=== PATIENT | female | born 1955 | race Caucasian/White ===

== ENCOUNTER 2018-09-15 00:40 | Day surgery (SDC) | payer OTHER ==
[~2018-09-15 00:40] MED LIST: ABAT250V; ACTEMRA162 MG/0.9 SC; ARMOUR THYROID; Calcium 600-D1 EACH; GABA100 PO; HYDACE10B PO; Hydrocodone-Ap1 EA20 PO; LEVSOD125 PO; MORP15ER PO; MULVITMIND PO; NAPR500 PO; ONDA4ODT MM; OXYC15ER PO; VARE1 PO
== END 2018-09-15 10:39 | disposition home or self-care (01) ==
LOC: ATC 00:40
DX: M05.79 Rheumatoid arthritis with rheumatoid factor of multiple sites without organ or systems involvement (principal)
CPT/HCPCS: 96365; J0129

== ENCOUNTER 2019-09-15 09:56 | Day surgery (SDC) | payer OTHER ==
--- NOTE | 2019-09-15 11:38 | NUR ---
1116 RECEIVED PT INTO STEP VIA [facility]. PT GRIMACING, LYING ON RIGHT SIDE. ALL BELONINGS UNDER BED. PT REPOSTIONED ON TOWEL ROLL AND PILLOW BETWEEN KNEES WHICH DECREASED PAIN. WARM BLANKETS PROVIDED. Dressing to procedure site clean, dry, intact with no visible drainage, swelling, erythema or bruising noted. 1129 PT HAS BEEN ON RIGHT SIDE FOR 30MINUTES. VSS. Dressing to procedure site clean, dry, intact with no visible drainage, swelling, erythema or bruising noted. TOLERATED FOOD AND FLUID. REPOSTIONED PATIENT TO BACK WITH KNEES ELEVATED. PROVIDED RELAXING ENVIRONMENT.VSS.
--- NOTE | 2019-09-15 12:08 | NUR ---
PT VOICED ON TIME OF ARRIVAL THAT SHE WASN'T GOING TO STAY FOR TWO HOURS. I VERBALIZED RISKS OF LEAVING RECOVERY SOONER THAN ORDERED. PT VERBALIZED UNDERSTANDING. AT 1202 PT SAT UP AND STATED, "I AM READY TO GO HOME". "I AM NOT STAYING FOR ANOTHER HOUR. Patient up to Ambulate independently. Gait steady. Discharge instructions reviewed with patient. Patient verbalizes understanding. Copy given to patient to take home. Dressing to procedure site clean, dry, intact with no visible drainage, swelling, erythema or bruising noted. ALL BELONINGS RETURNED TO PATIENT. NOTIFIED DR LEE OF PT LEAVING THE HOSPITAL AN HOUR EARLIER THAN ORDERED.
== END 2019-09-15 22:55 | disposition home or self-care (01) ==
LOC: US 09:56
DX: K75.9 Inflammatory liver disease, unspecified (principal); K76.0 Fatty (change of) liver, not elsewhere classified; E78.5 Hyperlipidemia, unspecified; K75.4 Autoimmune hepatitis; E66.9 Obesity, unspecified; Z87.891 Personal history of nicotine dependence; K43.9 Ventral hernia without obstruction or gangrene
CPT/HCPCS: 47000; 76942; 88307; 88313

== ENCOUNTER → 2020-05-12 | Outpatient (CLI) | payer OTHER ==
[~2020-05-12] MED LIST changes: +ACTEMRA162 MG/0.1 SC; +ASCO500; +CALCIUM 600 +1 EAC6; +Calcium Acetat667 MG; +EUTHYROX200 MC1 PO; +LECITHIN; +LECITHIN PO; +METF500; +VITAMIN D3 PO; +VITAMIN D310 MC4
[2020-05-12 17:20] LABS: U Amphetamine Screen Not Detected; U Barbituate Screen Not Detected; U Benzodiazapine Screen Not Detected; U Cannabinoids Screen Not Detected; U Cocaine Screen Not Detected; U Methadone Screen Not Detected; U Methamphetamine Screen Not Detected; U Opiates Screen DETECTED; U Phencyclidine Screen Not Detected
[2020-05-12 17:21] LABS: U Buprenorphine Screen Not Detected; U Oxycodone Screen Not Detected; U Propoxyphene Screen Not Detected
== END ==
LOC: LAB SHORT 15:48 → LAB 15:48 → LAB FUT 05-10 16:45
PROVIDERS: Nurse Practitioner Family
DX: Z51.81 Encounter for therapeutic drug level monitoring (principal); Z79.891 Long term (current) use of opiate analgesic

== ENCOUNTER 2020-07-08 09:24 | Day surgery (SDC) | payer OTHER ==
[~2020-07-08] VITALS: Ht 160 cm; Wt 97.1 kg
[~2020-07-08 09:24] MED LIST changes: -ASCO500; -CALCIUM 600 +1 EAC6; -Calcium Acetat667 MG; -LECITHIN; -METF500; -VITAMIN D3 PO; -VITAMIN D310 MC4
--- NOTE | 2020-07-08 10:35 | NUR ---
07/08/20 1035 Alaina Mccain Rodriguez 0918 PT. CAME IN DRINKING WATER. PT. VERBALIZES TAKING 3 DRINKS FROM WATER BOTTLE. ADMITTING DESK ALSO OBSERVED PT. DRINKING. PT.COULDN'T TELL HOW MUCH SHE DRANK. DR. JOSE THE ANESTHESIOLOGIST WAS NOTIFIED. PT. WOULD NEED TO BE DELAY. PT.INFORMED OF THIS.
[2020-07-08] MEDS ORDERED: Calcium Acetat667 MG (10:48)
[2020-07-08] MEDS ORDERED: METF500 (10:48)
[2020-07-08] MEDS ORDERED: LECITHIN (10:49)
[2020-07-08] MEDS ORDERED: ASCO500 (10:50)
[2020-07-08] MEDS ORDERED: VITAMIN D310 MC4 (11:11)
[2020-07-08] MEDS ORDERED: VITAMIN D3 PO (11:18)
[2020-07-08] MEDS ORDERED: CALCIUM 600 +1 EAC6 (13:34)
--- NOTE | 2020-07-08 13:42 | NUR ---
07/08/20 1342 Alaina Mccain PT. COUGHING POST ENDO. PT. STOPPED COUGHING AFTER DRINKING HER COFFEE.
== END 2020-07-08 13:25 | disposition home or self-care (01) ==
LOC: ORSCSDS 09:24
PROVIDERS: Internal Medicine Gastroenterology
PROC: 0DB78ZX Excision of Stomach, Pylorus, Via Natural or Artificial Opening Endoscopic, Diagnostic (ICD-10-PCS; principal; 2020-07-08 10:30)
PROC: 0DB58ZX Excision of Esophagus, Via Natural or Artificial Opening Endoscopic, Diagnostic (ICD-10-PCS; principal; 2020-07-08 10:30)
PROC: 0D757ZZ Dilation of Esophagus, Via Natural or Artificial Opening (ICD-10-PCS; principal; 2020-07-08 10:30)
DX: R13.10 Dysphagia, unspecified (principal); K21.9 Gastro-esophageal reflux disease without esophagitis; K29.70 Gastritis, unspecified, without bleeding; E66.01 Morbid (severe) obesity due to excess calories; Z68.37 Body mass index [BMI] 37.0-37.9, adult; E03.9 Hypothyroidism, unspecified; E78.5 Hyperlipidemia, unspecified; E11.9 Type 2 diabetes mellitus without complications; Z79.84 Long term (current) use of oral hypoglycemic drugs; Z79.899 Other long term (current) drug therapy; Z87.891 Personal history of nicotine dependence; Z86.19 Personal history of other infectious and parasitic diseases
CPT/HCPCS: 82947; 88305; 88312; 88342; J0330; J0461; J2405; J2704; J3010; J7120

== ENCOUNTER → 2022-03-14 | Outpatient (CLI) | payer OTHER ==
[~2022-03-14] MED LIST changes: +ASCO500; +CALCIUM 600 +1 EAC6; +Calcium Acetat667 MG; +LECITHIN; +METF500; +VITAMIN D3 PO; +VITAMIN D310 MC4
[2022-03-14 17:27] LABS: Microalb/Creat Ratio UR, Rand 46.066 mg/g (0.000-30.000); Microalbumin, Random Urine 56.2 mg/L (0.000-20.000)
== END | disposition home or self-care (01) ==
LOC: LAB SHORT 08:51
PROVIDERS: Physician Assistant
DX: R73.03 Prediabetes (principal)
CPT/HCPCS: 82043; 82570

== ENCOUNTER 2024-04-20 15:54 | Inpatient (IN) | payer OTHER ==
[~2024-04-20] VITALS: Ht 160 cm; Wt 90.7 kg
[~2024-04-20 15:54] MED LIST changes: +CALCIUM 500-VI1 EAC6 PO; -CALCIUM 600 +1 EAC6; +HYDROCODONE-AC1 EAC7 PO; -Hydrocodone-Ap1 EA20 PO; -METF500; +METFORMIN ER G500 MG PO
[2024-04-20 16:51] LABS: BASOPHILS ABSOLUTE AUTO 0.01 K/mm3 (0.00-0.23); BASOPHILS PERCENT AUTO 0 % (0-2); EOSINOPHILS PERCENT AUTO 0 % (0-6); Hematocrit 43.9 % (33.0-51.0); Hemoglobin 14.7 g/dL (11.5-16.0); IMMATURE GRAN ABSOLUTE AUTO 0.02 K/mm3 (0.00-0.10); IMMATURE GRAN PERCENT AUTO 0 % (0-1); LYMPHOCYTES ABSOLUTE AUTO 1.04 K/mm3 (0.84-5.20); LYMPHOCYTES PERCENT AUTO 12 % (21-46); MONOCYTES ABSOLUTE AUTO 1.07 K/mm3 (0.16-1.47); MONOCYTES PERCENT AUTO 12 % (4-13); Mean Corpuscular HGB 28.4 pg (26.0-34.0); Mean Corpuscular HGB Conc 33.5 g/dL (31.5-36.5); Mean Corpuscular Volume 85 fL (80-100); NEUTROPHILS ABSOLUTE AUTO 6.59 K/mm3 (1.96-9.15); NEUTROPHILS PERCENT AUTO 76 % (41-73); Platelet Count 226 K/mm3 (150-400); RDW Coefficient Variation 13.2 % (11.7-14.2); RDW Standard Deviation 40.6 fL (35.1-46.3); Red Blood Cell Count 5.17 M/mm3 (3.80-5.20); White Blood Cell Count 8.73 K/mm3 (4.00-11.30)
[2024-04-20 17:27] LABS: Albumin, Blood 3.7 g/dL (3.4-5.0); Albumin/Globulin Ratio 0.8 (0.8-1.8); Bilirubin, Total 0.3 mg/dL (0.1-1.0); Bun/Creatinine Ratio 17.5 (12.0-20.0); Calcium, Blood 8.9 mg/dL (8.5-10.1); Creatinine, Blood 0.69 mg/dL (0.40-1.00); Globulin, Blood 4.8 g/dL (2.2-4.0); Potassium, Blood 3.5 mmol/L (3.5-5.5); Total Protein, Blood 8.5 g/dL (6.4-8.2)
[2024-04-20 17:54] LABS: Source, Urine Clean Catch
[2024-04-20 18:00] LABS: Appearance, Urine Hazy (Clear); Bilirubin, Urine Neg (Neg); Blood, Urine 2+ (Neg); Color, Urine Yellow (P-Yellow); Glucose Qualitative, Urine Neg (Neg); Ketones, Urine 2+ (Neg); Leukocyte Esterase, Urine 2+ (Neg); Nitrite, Urine Neg (Neg); Protein, Urine 4+ (Neg); Urobilinogen, Urine NORM (Normal)
[2024-04-20] MEDS ORDERED: Ipratropium/Albuterol SulF 2.5-0.5MG/3 ML Amp INH ONE (18:10)
[2024-04-20 18:16] LABS: Bacteria Many /hpf; Mucus Light (0-Heavy); Squamous Epithelial Cells Mod /hpf (Few)
[2024-04-20] MEDS ORDERED: Acetaminophen 500 MG Tab PO ONE (18:20)
[2024-04-20] MEDS ORDERED: CefTRIAXone Sodium 1,000 MG in NS 100 ML IV ONE (18:40)
[2024-04-20] MEDS ORDERED: Azithromycin 500 MG in NS 250 ML IV ONE (18:45)
[2024-04-20 18:48] LABS: Influenza B, PCR NEGATIVE (NEGATIVE); Resp Syncytial Virus, PCR NEGATIVE (NEGATIVE); SARS-Cov-2 (COVID-19) PCR, MMC NEGATIVE (NEGATIVE)
[2024-04-20 19:05] LABS: Influenza A, PCR POSITIVE (NEGATIVE)
[2024-04-20] MEDS ORDERED: Oseltamivir Phosphate 75 MG Cap PO ONE (20:40)
[2024-04-20] MEDS ORDERED: Ipratropium/Albuterol SulF 2.5-0.5MG/3 ML Amp INH SCH (22:00)
[2024-04-20] MEDS ORDERED: FLU VACC TS2024-25(6MOS UP)/PF 45 MCG/0.5 ML SYRINGE IM ONE (22:00)
[2024-04-20] MEDS ORDERED: Acetaminophen 325 MG TABLET PO PRN (22:05)
[2024-04-20] MEDS ORDERED: SPIRIVA RESPIMAT4 G3 INH (23:28)
[2024-04-20] MEDS ORDERED: BUDESONIDE-FO10.2 G2 INH (23:29)
[2024-04-20] MEDS ORDERED: CYCL10 PO (23:30)
[2024-04-20] MEDS ORDERED: ORENCIA CL125 MG/1 M SC (23:32)
[2024-04-20 23:58] VITALS: BP 98/76
[2024-04-21 04:10] VITALS: BP 136/78
[2024-04-21 05:22] LABS: BASOPHILS ABSOLUTE AUTO 0.02 K/mm3 (0.00-0.23); BASOPHILS PERCENT AUTO 0 % (0-2); EOSINOPHILS ABSOLUTE AUTO 0.01 K/mm3 (0.00-0.68); EOSINOPHILS PERCENT AUTO 0 % (0-6); Hematocrit 48.6 % (33.0-51.0); Hemoglobin 15.5 g/dL (11.5-16.0); IMMATURE GRAN ABSOLUTE AUTO 0.03 K/mm3 (0.00-0.10); IMMATURE GRAN PERCENT AUTO 0 % (0-1); LYMPHOCYTES ABSOLUTE AUTO 2.45 K/mm3 (0.84-5.20); LYMPHOCYTES PERCENT AUTO 23 % (21-46); MONOCYTES ABSOLUTE AUTO 1.53 K/mm3 (0.16-1.47); MONOCYTES PERCENT AUTO 14 % (4-13); Mean Corpuscular HGB 28.5 pg (26.0-34.0); Mean Corpuscular HGB Conc 31.9 g/dL (31.5-36.5); Mean Corpuscular Volume 89 fL (80-100); NEUTROPHILS ABSOLUTE AUTO 6.61 K/mm3 (1.96-9.15); NEUTROPHILS PERCENT AUTO 62 % (41-73); Platelet Count 189 K/mm3 (150-400); RDW Coefficient Variation 13.5 % (11.7-14.2); Red Blood Cell Count 5.44 M/mm3 (3.80-5.20); White Blood Cell Count 10.65 K/mm3 (4.00-11.30)
[2024-04-21] MEDS ORDERED: Cyclobenzaprine HCl 10 MG Tab PO PRN (05:30)
[2024-04-21] MEDS ORDERED: HYDROcodone 10-APAP 325 TAB PO PRN (05:30)
[2024-04-21 05:43] LABS: Albumin, Blood 3.4 g/dL (3.4-5.0); Albumin/Globulin Ratio 0.7 (0.8-1.8); Bilirubin, Total 0.3 mg/dL (0.1-1.0); Bun/Creatinine Ratio 19.1 (12.0-20.0); Calcium, Blood 8.8 mg/dL (8.5-10.1); Creatinine, Blood 1.1 mg/dL (0.40-1.00); Globulin, Blood 4.8 g/dL (2.2-4.0); Magnesium, Blood 2.5 mg/dL (1.6-2.4); Potassium, Blood 3.4 mmol/L (3.5-5.5); Total Protein, Blood 8.2 g/dL (6.4-8.2)
[2024-04-21] MEDS ORDERED: Levothyroxine Sodium 0.1 MG Tab PO SCH (06:00)
[2024-04-21 07:27] VITALS: BP 113/69
[2024-04-21] MEDS ORDERED: Potassium Chloride 20 MEQ/15 ML UDC PO ONE (08:40)
[2024-04-21] MEDS ORDERED: Calcium Carbonate 1,250 MG TABLET PO SCH (09:00)
[2024-04-21] MEDS ORDERED: Lactobacil 2-S.Thermo-Bifido 1 1 Cap PO SCH (09:00)
[2024-04-21] MEDS ORDERED: PredniSONE 20 MG Tab PO SCH (09:00)
[2024-04-21] MEDS ORDERED: Oseltamivir Phosphate 75 MG Cap PO SCH (09:00)
[2024-04-21] MEDS ORDERED: Enoxaparin 40 MG/0.4 ML SYR SC SCH (09:00)
[2024-04-21] MEDS ORDERED: Cholecalciferol 400 unit Tab PO SCH (09:00)
[2024-04-21] MEDS ORDERED: GuaiFENesin 600 MG TabCR PO SCH (09:00)
[2024-04-21] MEDS ORDERED: DEXTROMETHORPHAN/BENZOCAINE 1 EACH LOZENGE MT PRN (16:40)
[2024-04-21 17:18] VITALS: BP 120/72
[2024-04-21 19:43] VITALS: BP 114/65
[2024-04-21] MEDS ORDERED: Miconazole Nitrate 2% 85 GM PWD TOP SCH (20:00)
[2024-04-21] MEDS ORDERED: NS 250 ML IV PRN (20:00)
[2024-04-21] MEDS ORDERED: Azithromycin 500 MG in NS 250 ML IV SCH (21:00)
[2024-04-21] MEDS ORDERED: CefTRIAXone Sodium 1,000 MG in NS 100 ML IV SCH (21:00)
[2024-04-22 04:47] VITALS: BP 127/81
[2024-04-22] MEDS ORDERED: Meclizine HCl 25 MG Tab PO PRN (06:25)
[2024-04-22 07:55] VITALS: BP 141/82
[2024-04-22 08:49] LABS: BASOPHILS ABSOLUTE AUTO 0.01 K/mm3 (0.00-0.23); BASOPHILS PERCENT AUTO 0 % (0-2); EOSINOPHILS PERCENT AUTO 0 % (0-6); Hematocrit 41.5 % (33.0-51.0); Hemoglobin 13.5 g/dL (11.5-16.0); IMMATURE GRAN ABSOLUTE AUTO 0.02 K/mm3 (0.00-0.10); IMMATURE GRAN PERCENT AUTO 0 % (0-1); LYMPHOCYTES ABSOLUTE AUTO 2.36 K/mm3 (0.84-5.20); LYMPHOCYTES PERCENT AUTO 32 % (21-46); MONOCYTES PERCENT AUTO 10 % (4-13); Mean Corpuscular HGB 28.2 pg (26.0-34.0); Mean Corpuscular HGB Conc 32.5 g/dL (31.5-36.5); Mean Corpuscular Volume 87 fL (80-100); NEUTROPHILS ABSOLUTE AUTO 4.31 K/mm3 (1.96-9.15); NEUTROPHILS PERCENT AUTO 58 % (41-73); Platelet Count 220 K/mm3 (150-400); RDW Coefficient Variation 13.2 % (11.7-14.2); RDW Standard Deviation 41.4 fL (35.1-46.3); Red Blood Cell Count 4.78 M/mm3 (3.80-5.20)
[2024-04-22] MEDS ORDERED: Miconazole Nitrate 2% 85 GM PWD TOP SCH (09:00)
[2024-04-22 09:18] LABS: Bun/Creatinine Ratio 28.2 (12.0-20.0); Calcium, Blood 8.8 mg/dL (8.5-10.1); Creatinine, Blood 0.92 mg/dL (0.40-1.00); Magnesium, Blood 2.6 mg/dL (1.6-2.4); Potassium, Blood 3.6 mmol/L (3.5-5.5)
[2024-04-22] MEDS ORDERED: PRED20 PO (16:55)
[2024-04-22] MEDS ORDERED: OSEL75CA PO (16:55)
== END 2024-04-22 17:46 | disposition home or self-care (01) | DRG 193 ==
LOC: ER 15:54 → MEDS 15:55 → ERHOLD 15:55 → MEDS 23:36
PROVIDERS: Student in an Organized Health Care Education/Training Program; ADMIT Student in an Organized Health Care Education/Training Program
DX: J10.1 Influenza due to other identified influenza virus with other respiratory manifestations (principal); J96.01 Acute respiratory failure with hypoxia; J44.1 Chronic obstructive pulmonary disease with (acute) exacerbation; E03.9 Hypothyroidism, unspecified; I25.10 Atherosclerotic heart disease of native coronary artery without angina pectoris; M06.00 Rheumatoid arthritis without rheumatoid factor, unspecified site; G89.29 Other chronic pain; R73.03 Prediabetes; E66.9 Obesity, unspecified; Z68.35 Body mass index [BMI] 35.0-35.9, adult; Z79.891 Long term (current) use of opiate analgesic; Z79.890 Hormone replacement therapy; Z79.84 Long term (current) use of oral hypoglycemic drugs; Z96.643 Presence of artificial hip joint, bilateral; Z96.611 Presence of right artificial shoulder joint; Z87.891 Personal history of nicotine dependence; Z86.19 Personal history of other infectious and parasitic diseases
CPT/HCPCS: 0241U; 36415; 71046; 80048; 80053; 81001; 83605; 83735; 84145; 85025; 87086; 93005; 93010; 94640; 94664; 94760; 94761; 94762; 96365; 96367; 96372; 99285-25; A9270; G0378; J0456; J0696; J1650; J7050; J7512

== ENCOUNTER 2024-11-12 06:18 | Day surgery (SDC) | payer OTHER ==
[2024-11-12] VITALS (9 sets, daily range): BP systolic 145–164; BP diastolic 85–119
[~2024-11-12] VITALS: Ht 160 cm; Wt 95.6 kg
[~2024-11-12 06:18] MED LIST changes: +BUDESONIDE-FO10.2 G2 INH; +CYCL10 PO; +EUTHYROX150 MC1 PO; -EUTHYROX200 MC1 PO; +LIOT5 PO; +NYAMYC15 G1 TOP; +ORENCIA CL125 MG/1 M SC; +OSEL75CA PO; +PRED20 PO; +SPIRIVA RESPIMAT4 G3 INH; +TEARS LUBRICANT15 ML BOTHEYES
[2024-11-12] MEDS ORDERED: CeFAZolin Sodium 2,000 MG in NS 100 ML IV SCH (06:50)
[2024-11-12] MEDS ORDERED: Bupivacaine 0.5% HCl 5 MG/ML 30MLVIAL ONE (06:55)
[2024-11-12] MEDS ORDERED: Ondansetron HCl 2 MG / ML 2ML Vial ONE (06:58)
[2024-11-12] MEDS ORDERED: Dexamethasone Sod Phos 10 MG/ML 1ML VIAL ONE (06:58)
[2024-11-12] MEDS ORDERED: Midazolam HCl 1MG / ML 2ML Vial ONE (07:07)
[2024-11-12] MEDS ORDERED: FentaNYL Citrate 50 MCG/ML 2 ML Injection ONE (07:07)
[2024-11-12] MEDS ORDERED: Ketorolac Tromethamine 30mg Vial ONE (08:10)
[2024-11-12] MEDS ORDERED: Glycopyrrolate 0.2 MG/ML 5ML VIAL ONE (08:10)
[2024-11-12] MEDS ORDERED: HYDROcodone 5-APAP 325 TAB PO PRN (08:30)
[2024-11-12] MEDS ORDERED: HYDROmorphone HCl/Pf 1MG SYR IV PRN ×2 (08:35)
[2024-11-12] MEDS ORDERED: Ondansetron HCl 2 MG / ML 2ML Vial IV PRN (08:35)
[2024-11-12] MEDS ORDERED: HydrALAZINE HCl 20 MG / ML 1ML Vial IV PRN (08:35)
[2024-11-12] MEDS ORDERED: Metoclopramide HCl 5MG / ML 2ML Vial IV PRN (08:35)
[2024-11-12] MEDS ORDERED: FentaNYL Citrate 50 MCG/ML 2 ML Injection IV PRN ×2 (08:35→08:40)
[2024-11-12] MEDS ORDERED: Albuterol 2.5 MG/3 ML VIAL INH PRN (08:40)
--- NOTE | 2024-11-12 10:01 | NUR ---
Discharge instructions reviewed with patient. Patient verbalizes understanding. Copy given to patient to take home. PT TOLERATED PO FLUIDS AND CRACKERS AND TOOK NORCO ORDERED FOR PAIN 08/11. [facility] CALLED. PT REQUESTED AND GAVE SECOND CUP OF COFFEE AND THEN DRESSED AND ESCORTED OUT VIA W/C TO VEHICLE, FRIEND NADER IS [facility]. DERMABOND TO LEFT FLANK WAS C/D/I.
== END 2024-11-12 10:00 | disposition home or self-care (01) ==
LOC: ORSCMMR 06:18 → ORD 07:30 → ORSCMMR 07:30 → ORSCSDS 07:30 → ORSCMMR 10:00
PROVIDERS: Surgery
PROC: 0JB70ZX Excision of Back Subcutaneous Tissue and Fascia, Open Approach, Diagnostic (ICD-10-PCS; principal; 2024-11-12 07:30)
DX: D17.1 Benign lipomatous neoplasm of skin and subcutaneous tissue of trunk (principal); E78.5 Hyperlipidemia, unspecified; Z87.891 Personal history of nicotine dependence; J44.89 Other specified chronic obstructive pulmonary disease; E66.9 Obesity, unspecified; Z68.37 Body mass index [BMI] 37.0-37.9, adult; E03.9 Hypothyroidism, unspecified; E11.9 Type 2 diabetes mellitus without complications; Z79.84 Long term (current) use of oral hypoglycemic drugs; Z79.899 Other long term (current) drug therapy
CPT/HCPCS: 82947; 88304; A9270; J0690; J1100; J1885; J2250; J2405; J2704; J3010; J7120

== ENCOUNTER 2024-12-29 13:39 | Emergency (ER) | payer OTHER ==
[~2024-12-29] VITALS: Ht 160 cm; Wt 86.2 kg
[2024-12-29 13:43] VITALS: BP 147/86
[2024-12-29] MEDS ORDERED: HYDROcodone 5-APAP 325 TAB PO ONE (15:20)
[2024-12-29] MEDS ORDERED: Norco 5-325 Ta1 EACH PO (16:28)
== END 2024-12-29 16:55 | disposition home or self-care (01) ==
LOC: ER 13:39
DX: R07.89 Other chest pain (principal); M79.645 Pain in left finger(s); M25.561 Pain in right knee; Z87.891 Personal history of nicotine dependence; Z79.890 Hormone replacement therapy; Z79.84 Long term (current) use of oral hypoglycemic drugs; Z79.899 Other long term (current) drug therapy
CPT/HCPCS: 71046; 73110; 73130; 73562-RT; 99284-25; A9270